=== PATIENT | male | born 1970 | race Hispanic/Latino ===

== ENCOUNTER 2024-04-01 10:55 | Emergency (ER) | payer SELFPAY ==
[~2024-04-01] VITALS: Ht 170.2 cm; Wt 89.8 kg
[2024-04-01 12:14] VITALS: BP 107/63; PULSE 67; RESP 20; O2SAT 99
== END 2024-04-01 11:30 | disposition home or self-care (01) ==
LOC: EDH 11:18
DX: S82.154A Nondisplaced fracture of right tibial tuberosity, initial encounter for closed fracture (principal); Z90.49 Acquired absence of other specified parts of digestive tract; Z98.890 Other specified postprocedural states; X50.1XXA Overexertion from prolonged static or awkward postures, initial encounter; Y93.01 Activity, walking, marching and hiking; Y92.89 Other specified places as the place of occurrence of the external cause; Y99.8 Other external cause status
CPT/HCPCS: 73630